=== PATIENT | male | born 1990 | race Caucasian/White ===

== ENCOUNTER 2020-10-15 17:03 | Emergency (ER) | payer SELFPAY ==
[2020-10-15] MEDS ORDERED: Amoxicillin/Clavulanate K 875-125 MG Tab PO ONE ×2 (17:04→17:21)
[2020-10-15] MEDS ORDERED: Ketorolac 30 MG/ML SDV IM ONE (17:22)
--- NOTE | 2020-10-15 17:28 | EDM.PDOC ---
ED HPI GENERAL MEDICAL PROBLEM - General Chief Complaint: ENT Problem Stated Complaint: DENTAL ISSUES Time Seen by Provider: 10/15/20 17:18 Source of Information: Reports: Patient History Limitations: Reports: No Limitations - History of Present Illness INITIAL COMMENTS - FREE TEXT/NARRATIVE: Patient is here for dental pain and swelling on the left side. It started about 2 days ago and has been getting worse. He has several broken teeth but has not been to the dentist yet. No fevers, but he has started to have chills earlier today. The pain is now radiating to his left ear and side of neck. He has not taken anything for the pain yet. Onset: Gradual Duration: Getting Worse Location: Reports: Face Quality: Reports: Throbbing Severity: Moderate - Related Data Allergies Allergy/AdvReac Type Severity Reaction Status Date / Time No Known Allergies Allergy Verified 10/15/20 17:15 ED ROS ENT - Review of Systems Review Of Systems: Comprehensive ROS is negative, except as noted in HPI. ED EXAM, ENT - Physical Exam Exam: See Below Exam Limited By: No Limitations General Appearance: Alert, WD/WN, No Apparent Distress Eye Exam: Bilateral Eye: Normal Inspection Ears: Normal External Exam, Normal Canal, Hearing Grossly Normal, Normal TMs Mouth/Throat: Dental Pain, Gum Swelling (left sided erythema, warmth and induration. ), Other Head: Atraumatic, Normocephalic Neck: Normal Inspection, Supple Respiratory/Chest: No Respiratory Distress, Lungs Clear, Normal Breath Sounds, No Accessory Muscle Use, Chest Non-Tender Cardiovascular: Normal Peripheral Pulses, Regular Rate, Rhythm, No Edema, No Murmur GI/Abdominal: Soft, Non-Tender (Male) Exam: Deferred Rectal (Males) Exam: Deferred Back: Normal Inspection, Full Range of Motion Extremities: Normal Inspection, Normal Range of Motion, Non-Tender, Normal Capillary Refill Neurological: Alert, Oriented, Normal Cognition, Normal Gait, Normal Reflexes Psychiatric: Normal Affect, Normal Mood Skin: Warm, Dry, Intact, Normal Color, No Rash Lymphatic: No Adenopathy Departure - Departure Time of Disposition: 17:22 Disposition: Home, Self-Care 01 Condition: Good Clinical Impression: Dental abscess, Dental caries - Discharge Information Instructions: Dental Abscess, [id number], Preventive Dental Care, Adult Forms: ED Department Discharge Additional Instructions: Augmentin twice daily for 10 days Ibuprofen and tylenol for pain relief Make an appointment to see a dentist to see about getting the broken teeth removed to prevent future infection.
[2020-10-15] MEDS ORDERED: Amoxicillin/Clavulanate K 875-125 MG Tab ONE (17:31)
== END 2020-10-15 17:33 | disposition home or self-care (01) ==
LOC: DL.ED 17:03
DX: K04.7 Periapical abscess without sinus (principal); K02.9 Dental caries, unspecified
CPT/HCPCS: 96372; 99282; 99283; A9270; J1885